=== PATIENT | female | born 1960 | race Caucasian/White ===

== ENCOUNTER 2020-01-19 12:02 | Emergency (ER) | payer MEDICAID ==
[~2020-01-19] VITALS: Ht 129.5 cm; Wt 57.1 kg
[2020-01-19 18:00] VITALS: BP 142/78
== END 2020-01-19 18:20 | disposition home or self-care (01) ==
LOC: ER 12:02
DX: U07.1 COVID-19 (principal); R05 Cough; R07.89 Other chest pain
CPT/HCPCS: 71045; 87420; 87635; 87804; 93005; 99285